=== PATIENT | male | born 1985 | race American Indian/Alaskan Native ===

== ENCOUNTER 2019-10-23 19:33 | Inpatient (IN) | payer OTHER ==
--- NOTE | 2019-10-23 19:48 | Event Note ---
ED Screening Note ED Screening Note: states that he was working out two mornings ago states after working out he felt like he had swelling in his right arm states he feels like he overworked his arm no fever no erythema pt has edema present to the LUE, increased warmth no vascular doppler person tonight PMHx HIV, on antivirals, states he is undetectable, HPV This initial assessment/diagnostic orders/clinical plan/treatment(s) is/are subject to change based on patients health status, clinical progression and re- assessment by fellow clinical providers in the ED. Further treatment and workup at subsequent clinical providers discretion. Patient/guardian urged not to elope from the ED as their condition may be serious if not clinically assessed and managed. orders: labs
[2019-10-23 20:15] LABS: Basophils % (Auto) 0.2 % (0.0-1.8); Eosinophils # (Auto) 0.1 K/mm3 (0.0-0.4); Eosinophils % (Auto) 2.3 % (0.0-4.3); Hematocrit 41.7 % (35.5-45.6); Hemoglobin 14.7 gm/dl (11.8-15.2); Lymphocytes # (Auto) 1.2 K/mm3 (1.2-5.4); Lymphocytes % (Auto) 19.6 % (13.4-35.0); Mean Corpuscular HGB Conc 35 % (32-34); Mean Corpuscular Volume 95 fl (84-94); Monocytes # (Auto) 0.1 K/mm3 (0.0-0.8); Monocytes % (Auto) 2.3 % (0.0-7.3); Platelet Count 240 K/mm3 (140-440); Red Blood Count 4.37 M/mm3 (3.65-5.03); Red Cell Distribution Width 12.8 % (13.2-15.2)
[2019-10-23 20:19] LABS: INR 1.06 (0.87-1.13)
[2019-10-23 20:20] LABS: Partial Thromboplastin Time 28.6 Sec. (24.2-36.6)
[2019-10-23 20:25] LABS: BUN/Creatinine Ratio 18; Blood Urea Nitrogen 20 mg/dL (9-20); Calcium 9.2 mg/dL (8.4-10.2); Hemolysis Index 13
--- NOTE | 2019-10-23 21:39 | Emergency Department Report ---
ED Upper Extremity Inj HPI - General Chief Complaint: Extremity Problem,Nontraumatic Stated Complaint: ARM SWELLING Time Seen by Provider: 10/23/19 19:40 Source: patient Mode of arrival: Ambulatory Limitations: No Limitations - History of Present Illness Initial Comments: Patient is a 33-year-old male with no past medical history except for HIV who presents to the ED with complaint of acute onset persistent bilateral arm pain and swelling worse on the right for the last 3 days after weightlifting and strenuous exercise in the gym. Patient states that prior to the strenuous exercise he had not been to the gym for over 5 months and decided to go to the gym 3 days ago and did heavy workout, mainly involving weightlifting. Patient states that subsequently he developed bilateral arm pain and swelling diffusely worse on the right arm. Patient states that he was evaluated initially at an urgent care clinic and was given a prescription for ibuprofen 800 mg tablets and Flexeril 10 mg tablets which she has been taking for the last 2 days. Patient states that he also has an outpatient order for bilateral upper extremity Doppler ultrasound to rule out DVT. Patient states that he is scheduled for these ultrasound of upper extremities the next day 10/25/2019. Patient however denies dizziness, chest pain, shortness of breath, abdominal pain, hematuria, dysuria, nausea, vomiting, headache, cough or wheezing, fall or traumatic injury. Complaint: Injury to:: left, right, arm, forearm -: Sudden, days(s) (4) Other Extremity Injury: Hand: Right, Left (pain and swelling), Wrist: Left, Right (pain and swelling), Elbow: Left, Right (pain and swelling), Arm: Left, Right (pain and swelling), Forearm: Left, Right (pain and swelling) Other Injuries: none Handedness: right Severity scale (0 -10): 6 Improves With: none Worsens With: none Context: injury (weight lifting and straineous work) Associated Symptoms: denies other symptoms. denies: weakness, numbness, neck pain, suspects foreign body, nausea/vomiting, heard/felt popping sensat Treatments Prior to Arrival: NSAIDS - Related Data Allergies Allergy/AdvReac Type Severity Reaction Status Date / Time No Known Allergies Allergy Unverified 10/23/19 19:48 ED Review of Systems ROS: Stated complaint: ARM SWELLING Other details as noted in HPI Constitutional: denies: chills, fever Eyes: denies: eye pain, eye discharge, vision change ENT: denies: ear pain, throat pain Respiratory: denies: cough, shortness of breath, wheezing Cardiovascular: denies: chest pain, palpitations Endocrine: no symptoms reported Gastrointestinal: denies: abdominal pain, nausea, diarrhea Genitourinary: denies: urgency, dysuria, frequency, hematuria, testicular pain, testicular mass Musculoskeletal: arthralgia (Bilateral arm and forearm pain and swelling), myalgia. denies: back pain, joint swelling Skin: denies: rash, lesions Neurological: denies: headache, weakness, paresthesias Psychiatric: denies: anxiety, depression Hematological/Lymphatic: denies: easy bleeding, easy bruising ED Past Medical Hx - Past Medical History Hx HIV: Yes Additional medical history: HPV - Surgical History Past Surgical History?: No - Social History Smoking Status: Never Smoker Substance Use Type: None ED Physical Exam - General Limitations: No Limitations General appearance: alert, in no apparent distress - Head Head exam: Present: atraumatic, normocephalic, normal inspection - Eye Eye exam: Present: normal appearance, PERRL, EOMI Pupils: Present: normal accommodation - ENT ENT exam: Present: normal exam, normal orophraynx, mucous membranes moist, TM's normal bilaterally, normal external ear exam - Neck Neck exam: Present: normal inspection, full ROM. Absent: tenderness, lymphadenopathy, thyromegaly - Respiratory Respiratory exam: Present: normal lung sounds bilaterally. Absent: respiratory distress, wheezes, rales, rhonchi, chest wall tenderness, accessory muscle use - Cardiovascular Cardiovascular Exam: Present: regular rate, normal rhythm, normal heart sounds. Absent: systolic murmur, diastolic murmur, rubs, gallop - GI/Abdominal GI/Abdominal exam: Present: soft, normal bowel sounds. Absent: distended, tenderness, guarding, rebound, hyperactive bowel sounds, hypoactive bowel sounds - Extremities Exam Extremities exam: Present: normal inspection, full ROM, tenderness (Palpable diffuse moderate bilateral arm and forearm tenderness with mild swelling), n ormal capillary refill. Absent: pedal edema, joint swelling, calf tenderness - Back Exam Back exam: Present: normal inspection, full ROM. Absent: tenderness, CVA tenderness (R), CVA tenderness (L), muscle spasm, paraspinal tenderness, vertebral tenderness - Neurological Exam Neurological exam: Present: alert, oriented X3, CN II-XII intact, normal gait, reflexes normal - Psychiatric Psychiatric exam: Present: normal affect, normal mood - Skin Skin exam: Present: warm, dry, intact, normal color. Absent: rash ED Course Vital Signs 10/23/19 10/24/19 12 19:39 00:08 03:42 Temperature 98.7 F 98.4 F 98.4 F Pulse Rate 96 H 72 70 Respiratory 18 18 18 Rate Blood Pressure 123/78 106/66 115/75 O2 Sat by Pulse 98 100 100 Oximetry ED Medical Decision Making - Lab Data Result diagrams: 10/23/19 19:54 10/23/19 19:54 - Medical Decision Making This is a 32-year-old male who presented to the ED with bilateral upper extremity pain and swelling after heavy lifting in the gym 3 days ago. Patient states that in the last 2 days the bilateral arm pain and swelling has worsened although he is currently on ibuprofen and Flexeril as needed prescribed recently by an urgent care clinic. In the ED, patient is alert and oriented 3 and is not in distress. Lab test results were reviewed and was positive for CK level 10,597.00 initially. There is a lab test results were unremarkable including urinalysis. The kidney functions and liver enzymes are normal. These findings were discussed with Dr. Webster the ED attending physician who agreed to plan of care to hydrate the patient in the ED and discussed the patient's results with the hospitalist physician environmental compliance manager Dr. Lopez. The patient's case was also discussed with Dr. Lopez the hospitalist physician environmental compliance manager who also advised that the patient be hydrated with at least 4 L of fluids and to monitor the trend of the CK level after the hydration. The patient received a total of 4 L of normal saline IV bolus. Repeat CK level after 4 L of normal saline IV fluids was 7137.0. These findings were discussed with Dr. Lopez. Hospitalist physician on-call admitted the patient to the hospital. - Differential Diagnosis Acute rhabdomyolysis; Muscle strain of arm; DVT Critical care attestation.: If time is entered above; I have spent that time in minutes in the direct care of this critically ill patient, excluding procedure time. ED Disposition Clinical Impression: Pain in both upper extremities Muscle strain of upper extremity Qualifiers: Encounter type: initial encounter Laterality: unspecified laterality Qualified Code(s): S46.919A - Strain of unspecified muscle, fascia and tendon at shoulder and upper arm level, unspecified arm, initial encounter Traumatic rhabdomyolysis Qualifiers: Encounter type: initial encounter Qualified Code(s): T79.6XXA - Traumatic ischemia of muscle, initial encounter Disposition: OP ADMIT IP TO THIS HOSP Is pt being admited?: Yes Condition: Stable Instructions: Muscle Strain (ED), Muscle Spasm (ED) Additional Instructions: Take the previously prescribed anti-inflammatory medications with food, ibuprofen as needed for pain, in addition to the muscle relaxant, drink plenty of fluids and follow-up with your primary care physician in 5-7 days for reevaluation. Referrals: MELODY HUNTER MD [Staff Physician] - 7-10 days Time of Disposition: 21:41 Print Language: GRENADIAN
[2019-10-23] MEDS ORDERED: SODIUM CHLORIDE 0.9% 1000 ML 1,000 ML IV ONE ×2 (21:57→23:04)
[2019-10-24 00:55] LABS: Bacteria,Urine 2+ /HPF (Negative); Bilirubin,Urine NEG (Negative); Blood,Urine NEG (Negative); Color,Urine Yellow (Yellow); Mucus,Urine FEW /HPF; Protein,Urine <15 mg/dL mg/dL (Negative); Sperm,Urine FEW /HPF (NP); Urobilinogen,Urine < 2.0 mg/dL (<2.0)
[2019-10-24] MEDS ORDERED: SODIUM CHLORIDE 0.9% 1000 ML 1,000 ML IV ONE ×2 (01:12)
[2019-10-24] MEDS ORDERED: ONDANSETRON 4 MG/2 ML INJ IV PRN (05:58)
[2019-10-24] MEDS ORDERED: oxyCODONE /ACETAMINOPHEN 5-325MG TAB PO PRN (05:58)
[2019-10-24] MEDS ORDERED: ACETAMINOPHEN 325 MG TAB PO PRN (05:58)
--- NOTE | 2019-10-24 06:00 | History and Physical Report ---
History of Present Illness History of present illness: 34-year-old man with a history of HIV, HPV comes emergency room with complaints of upper extremity pain started 10 days ago when he was working out, lifting weights. Pain is gotten worse, he went to urgent care on , they gave him some Flexeril and ibuprofen and sent him for ultrasound to rule out DVT. Patient said he is could not wait because of the increased pain. Patient is b eing admitted for rhabdomyolysis, rule out DVT Review Of Systems: Constitutional: no weight loss, fever, chills Ears, eyes, nose, mouth and throat: no nasal congestion, no nasal discharge, no sinus pressure, blurry vision, diplopia Neck: No neck pain or rigidity. Cardiovascular: No palpitations, chest pain Respiratory: No cough, shortness of breath Gastrointestinal: No hematochezia, abdominal pain Genitourinary : no dysuria, frequency , hematuria Musculoskeletal: no muscle ache , joint pain Integumentary: no rash, no pruritis Neurological: no parathesias, focal weakness Endocrine: no cold or heat intolerance, no polyuria or polydipsia Hematologic/Lymphatic: no easy bruising, no easy bleeding, no gland swelling Allergic/Immunologic: no urticaria, no angioedema. PAST MEDICAL HISTORY: HIV, HPV PAST SURGICAL HISTORY: NONE FAMILY HISTORY:hypertension SOCIAL HISTORY: Denies drugs, alcohol, tobacco Medications and Allergies Allergies Allergy/AdvReac Type Severity Reaction Status Date / Time No Known Allergies Allergy Verified 10/24/19 05:11 Home Medications Medication Instructions Recorded Confirmed Last Taken Type Cyclobenzaprine 1 tab PO QHS PRN 10/24/19 10/24/19 Unknown History Elviteg/Cob/Emtri/Tenof Alafen 1 each PO DAILY 10/24/19 10/24/19 Unknown History [Genvoya Tablet] Ibuprofen 1 tab PO PRN 10/24/19 10/24/19 Unknown History Furosemide [Lasix] 20 mg PO QDAY #7 tablet 10/26/19 Unknown Rx Active Meds: Active Medications Enoxaparin Sodium (Enoxaparin) 40 mg SUB-Q QDAY@1000 KLEBER Sodium Chloride (Nacl 0.9% 1000 Ml) 1,000 mls @ 150 mls/hr IV DIRECT KLEBER Exam - Physical Exam Narrative exam: General Apperance: The patient sitting in bed no acute distress HEENT: Normocephalic, atraumatic. Pupils equally round and reactive to light, extraocular movement intact, and no sclericterus or JVD or thyromegaly or nodule. Neck supple, no carotid bruit, mucous membranes dry, no exudate or erythema Heart: S1-S2, regular is rhythm Lungs: Clear to auscultation bilaterally, breathing comfortable Abdomen: Positive bowel sounds, soft, nontender, nondistended, no organomegaly Extremities: Upper extremity tender to touch, right swollen than left , no edema cyanosis clubbing Skin: no rash, nodule, warm and dry Neuro:CN 2 -12 intact, motor/sensory intact, speech is fluent - Constitutional Vitals: Temp Pulse Resp BP Pulse Ox 98.4 F 70 18 115/75 100 10/24/19 03:42 10/24/19 03:42 10/24/19 03:42 10/24/19 03:42 10/24/19 03:42 Results - Labs CBC & Chem 7: 10/25/19 06:48 10/26/19 07:22 Labs: Abnormal lab results 10/23/19 10/23/19 10/23/19 Range/Units 19:54 19:54 21:14 MCV 95 H (84-94) fl MCH 34 H (28-32) pg MCHC 35 H (32-34) % RDW 12.8 L (13.2-15.2) % Seg Neutrophils % 75.6 H (40.0-70.0) % Carbon Dioxide 21 L (22-30) mmol/L Glucose 104 H (75-100) mg/dL Total Creatine Kinase 84955 H (55-170) units/L Ur Specific [place] (1.003-1.030) 10/23/19 10/24/19 Range/Units Unknown 03:51 MCV (84-94) fl MCH (28-32) pg MCHC (32-34) % RDW (13.2-15.2) % Seg Neutrophils % (40.0-70.0) % Carbon Dioxide (22-30) mmol/L Glucose (75-100) mg/dL Total Creatine Kinase 7137 H (55-170) units/L Ur Specific [place] 1.035 H (1.003-1.030) Assessment and Plan Assessment Rhabdomyolysis Start aggressive IV fluid, monitor CK level, check ultrasound rule out DVT Percocet for pain HIV/HPV continue outpatient medications DVT prophylaxis
[2019-10-24] MEDS ORDERED: [UNRECOGNIZED DRUG - OTHER] PO SCH (10:00)
[2019-10-24] MEDS ORDERED: ENOXAPARIN 30 MG/0.3 ML INJ SUB-Q SCH (10:00)
--- NOTE | 2019-10-24 11:11 | Progress Note ---
Assessment and Plan Assessment and plan: --Rhabdomyolysis: CK levels more than 10,000 at the time of admission Increase IV hydration, add Lasix ,input output monitoring Monitor renal function, CK levels today more than 7000 Closely monitor, Pain management Check urine for drug screen --History of HIV/HPV; Continue current management, ID consult if needed --Morbid obesity; BMI 38.2 Patient advised dietary modification exercise as tolerated and weight reduction when medically stable --DVT prophylaxis; Lovenox Closely monitor and adjust management as needed Plan of care reviewed with the patient and his nurse Advanced care time 31 minutes History Interval history: Patient seen and examined this morning medical records reviewed Patient was admitted with acute rhabdomyolysis bilateral upper extremity swelling and tenderness Doppler studies pending Patient CK improved from 10,000-7000 Patient complains of generalized body pains Vital signs reviewed Hospitalist Physical - Constitutional Vitals: Temp Pulse Resp BP Pulse Ox 97.3 F L 71 16 112/62 98 10/24/19 08:19 12 08:19 10/24/19 08:19 10/24/19 08:19 10/24/19 08:19 General appearance: Present: no acute distress, well-nourished, obese (Morbidly obese) - EENT Eyes: Present: PERRL, EOM intact - Neck Neck: Present: supple, normal ROM - Respiratory Respiratory effort: normal, labored Respiratory: bilateral: diminished, negative: rales, rhonchi, wheezing - Cardiovascular Rhythm: regular Heart Sounds: Present: S1 & S2 - Extremities Extremities: no ischemia Extremity abnormal: edema (Bilateral upper extremities) - Abdominal General gastrointestinal: soft, non-tender, non-distended, normal bowel sounds - Integumentary Integumentary: Present: clear, warm - Psychiatric Psychiatric: appropriate mood/affect, cooperative - Neurologic Neurologic: CNII-XII intact, moves all extremities Results - Labs CBC & Chem 7: 10/23/19 19:54 10/23/19 19:54 Labs: Laboratory Last Values WBC 6.3 K/mm3 (4.5-11.0) 10/23/19 19:54 RBC 4.37 M/mm3 (3.65-5.03) 10/23/19 19:54 Hgb 14.7 gm/dl (11.8-15.2) 10/23/19 19:54 Hct 41.7 % (35.5-45.6) 10/23/19 19:54 MCV 95 fl (84-94) H 10/23/19 19:54 MCH 34 pg (28-32) H 10/23/19 19:54 MCHC 35 % (32-34) H 10/23/19 19:54 RDW 12.8 % (13.2-15.2) L 10/23/19 19:54 Plt Count 240 K/mm3 (140-440) 10/23/19 19:54 Lymph % (Auto) 19.6 % (13.4-35.0) 10/23/19 19:54 [place] % (Auto) 2.3 % (0.0-7.3) 10/23/19 19:54 Eos % (Auto) 2.3 % (0.0-4.3) 10/23/19 19:54 Baso % (Auto) 0.2 % (0.0-1.8) 10/23/19 19:54 Lymph # 1.2 K/mm3 (1.2-5.4) 10/23/19 19:54 [place] # 0.1 K/mm3 (0.0-0.8) 10/23/19 19:54 Eos # 0.1 K/mm3 (0.0-0.4) 10/23/19 19:54 Baso # 0.0 K/mm3 (0.0-0.1) 10/23/19 19:54 Seg Neutrophils % 75.6 % (40.0-70.0) H 10/23/19 19:54 Seg Neutrophils # 4.8 K/mm3 (1.8-7.7) 10/23/19 19:54 PT 13.7 Sec. (12.2-14.9) 10/23/19 19:54 INR 1.06 (0.87-1.13) 10/23/19 19:54 APTT 28.6 Sec. (24.2-36.6) 10/23/19 19:54 Sodium 137 mmol/L (137-145) 10/23/19 19:54 Potassium 4.3 mmol/L (3.6-5.0) 10/23/19 19:54 Chloride 99.3 mmol/L (98-107) 10/23/19 19:54 Carbon Dioxide 21 mmol/L (22-30) L 10/23/19 19:54 Anion Gap 21 mmol/L 10/23/19 19:54 BUN 20 mg/dL (9-20) 10/23/19 19:54 Creatinine 1.1 mg/dL (0.8-1.5) 10/23/19 19:54 Estimated GFR > 60 ml/min 10/23/19 19:54 BUN/Creatinine Ratio 18 % 10/23/19 19:54 Glucose 104 mg/dL (75-100) H 10/23/19 19:54 Calcium 9.2 mg/dL (8.4-10.2) 10/23/19 19:54 Total Creatine Kinase 7137 units/L (55-170) H 10/24/19 03:51 Urine Color Yellow (Yellow) 10/23/19 Unknown Urine Turbidity Clear (Clear) 10/23/19 Unknown Urine pH 5.0 (5.0-7.0) 10/23/19 Unknown Ur Specific [place] 1.035 (1.003-1.030) H 10/23/19 Unknown Urine Protein <15 mg/dl mg/dL (Negative) 10/23/19 Unknown Urine Glucose (UA) Neg mg/dL (Negative) 10/23/19 Unknown Urine Ketones Tr mg/dL (Negative) 10/23/19 Unknown Urine Blood Neg (Negative) 10/23/19 Unknown Urine Nitrite Neg (Negative) 10/23/19 Unknown Urine Bilirubin Neg (Negative) 10/23/19 Unknown Urine Urobilinogen < 2.0 mg/dL (<2.0) 10/23/19 Unknown Ur Leukocyte Esterase Neg (Negative) 10/23/19 Unknown Urine WBC (Auto) 1.0 /HPF (0.0-6.0) 10/23/19 Unknown Urine RBC (Auto) 5.0 /HPF (0.0-6.0) 10/23/19 Unknown U Epithel Cells (Auto) < 1.0 /HPF (0-13.0) 10/23/19 Unknown Urine Bacteria (Auto) 2+ /HPF (Negative) 10/23/19 Unknown Urine Mucus Few /HPF 10/23/19 Unknown Urine Sperm Few /HPF ([facility] [employer]) 10/23/19 Unknown Active Medications - Current Medications Current Medications: Generic Name Dose Route Start Last Admin Trade Name Freq PRN Reason Stop Dose Admin Acetaminophen 650 mg 10/24/19 05:58 Tylenol PO Q4H PRN Pain MILD(1-3)/Fever >100.5/HARMON Enoxaparin Sodium 40 mg 10/24/19 10:00 Enoxaparin SUB-Q QDAY@1000 REPLACED BY [facility] Sodium Chloride 1,000 mls @ 150 mls/hr 10/24/19 05:15 Nacl 0.9% 1000 Ml IV DIRECT KLEBER Miscellaneous Medication 1 each 10/24/19 10:00 Elviteg/Cob/Emtri/Tenof Alafen [Genvoya Tablet] PO DAILY REPLACED BY [facility] Ondansetron HCl 4 mg 10/24/19 05:58 Zofran IV Q8H PRN Nausea And Vomiting Oxycodone/Acetaminophen 1 tab 10/24/19 05:58 Percocet 5/325 PO Q6H PRN Pain, Moderate (4-6) Sodium Chloride 10 ml 10/24/19 10:00 Sodium Chloride Flush Syringe 10 Ml IV BID KLEBER Sodium Chloride 10 ml 10/24/19 05:58 Sodium Chloride Flush Syringe 10 Ml IV PRN PRN LINE FLUSH
[2019-10-24] MEDS: SODIUM CHLORIDE 0.9% 1000 ML 1,000 ML IV SCH ×3 (11:14→22:52)
[2019-10-24] MEDS: ENOXAPARIN 40 MG/0.4 ML INJ SUB-Q SCH (12:22)
[2019-10-24] MEDS: FUROSEMIDE 20 MG/2 ML INJ IV SCH (17:52)
[2019-10-25] MEDS: SODIUM CHLORIDE 0.9% 1000 ML 1,000 ML IV SCH ×4 (04:02→23:35)
[2019-10-25] MEDS: FUROSEMIDE 20 MG/2 ML INJ IV SCH ×2 (06:06→19:34)
[2019-10-25 06:57] LABS: Amphetamine Screen,Urine PRESUMPTIVE NEGATIVE; Benzodiazepines Screen,Urine PRESUMPTIVE NEGATIVE; Cannabinoid Screen,Urine PRESUMPTIVE NEGATIVE; Cocaine Screen,Urine PRESUMPTIVE NEGATIVE; Methadone Screen,Urine PRESUMPTIVE NEGATIVE; Opiate Screen,Urine PRESUMPTIVE NEGATIVE
[2019-10-25 07:41] LABS: Basophils % (Auto) 0.4 % (0.0-1.8); Eosinophils # (Auto) 0.2 K/mm3 (0.0-0.4); Eosinophils % (Auto) 4.5 % (0.0-4.3); Hematocrit 39.6 % (35.5-45.6); Lymphocytes # (Auto) 1.4 K/mm3 (1.2-5.4); Lymphocytes % (Auto) 25.5 % (13.4-35.0); Mean Corpuscular HGB Conc 35 % (32-34); Mean Corpuscular Volume 95 fl (84-94); Monocytes # (Auto) 0.3 K/mm3 (0.0-0.8); Monocytes % (Auto) 4.9 % (0.0-7.3); Platelet Count 224 K/mm3 (140-440); Red Blood Count 4.16 M/mm3 (3.65-5.03); Red Cell Distribution Width 12.9 % (13.2-15.2)
[2019-10-25 07:54] LABS: Creatine Kinase MB 3.9 ng/mL (0.0-4.0)
[2019-10-25 07:56] LABS: BUN/Creatinine Ratio 16; Blood Urea Nitrogen 16 mg/dL (9-20); Calcium 8.9 mg/dL (8.4-10.2); Hemolysis Index 3
[2019-10-25] MEDS: ENOXAPARIN 40 MG/0.4 ML INJ SUB-Q SCH (11:12)
--- NOTE | 2019-10-25 11:39 | Vascular Lab Report ---
DUPLEX DOPPLER UPPER EXTREMITY VENOUS, BILATERAL INDICATION: Bilateral arm swelling for 5 days duration. TECHNIQUE: Duplex doppler imaging was performed through the veins of the right and left upper extremity using ve nous compression and other maneuvers. COMPARISON: None available. FINDINGS: Right Internal Jugular vein: Negative. Right Subclavian vein: Negative. Right Axillary vein: Negative. Right Brachial vein: Negative. Right Forearm veins: Negative. Right Basilic vein (superficial): Negative. Left Internal Jugular vein: Negative. Left Subclavian vein: Negative. Left Axillary vein: Negative. Left Brachial vein: Negative. Left Forearm veins: Negative. Left Basilic vein (superficial): Negative. Additional findings: None. IMPRESSION: 1. No sonographic evidence for DVT in the right or left upper extremity. Signer Name: Lamont Beckman MD Signed: 10/25/2019 11:34 AM Workstation Name: [id number]
--- NOTE | 2019-10-25 18:34 | Progress Note ---
Assessment and Plan Assessment and plan: --Myalgia; supportive care Pain medications --Rhabdomyolysis: Preserved renal function CK levels trending down 10,000 -7000 -4000s continue IV hydration, diuresis, closely monitor If CK levels less than 2000 Patient can be discharged home --History of HIV/HPV; Continue current management, Stable --Morbid obesity; BMI 38.2 Patient advised dietary modification exercise as tolerated and weight reduction when medically stable --DVT prophylaxis; Lovenox Monitor closely and adjust management as needed Possible discharge in 1 to 2 days if stable History Interval history: Patient seen and examined medical records reviewed Patient feels slightly better diuresing well Continues to have upper extremity pain mild swelling CK levels trending down Alert awake oriented x3 Vital signs reviewed Hospitalist Physical - Constitutional Vitals: Temp Pulse Resp BP Pulse Ox 98.2 F 74 19 124/78 98 10/25/19 11:21 10/25/19 11:21 10/25/19 11:21 10/25/19 11:21 10/25/19 11:21 General appearance: Present: no acute distress, well-nourished, obese (Morbidly obese) - EENT Eyes: Present: PERRL, EOM intact - Neck Neck: Present: supple, normal ROM - Respiratory Respiratory effort: normal Respiratory: bilateral: diminished, negative: rales, rhonchi, wheezing - Cardiovascular Rhythm: regular Heart Sounds: Present: S1 & S2 - Extremities Extremities: no ischemia, No edema - Abdominal General gastrointestinal: soft, non-tender, non-distended, normal bowel sounds - Integumentary Integumentary: Present: clear, warm - Psychiatric Psychiatric: appropriate mood/affect, cooperative - Neurologic Neurologic: CNII-XII intact, moves all extremities Results - Labs CBC & Chem 7: 10/25/19 06:48 10/25/19 06:48 Labs: Laboratory Last Values WBC 5.4 K/mm3 (4.5-11.0) 10/25/19 06:48 RBC 4.16 M/mm3 (3.65-5.03) 10/25/19 06:48 Hgb 14.0 gm/dl (11.8-15.2) 10/25/19 06:48 Hct 39.6 % (35.5-45.6) 10/25/19 06:48 MCV 95 fl (84-94) H 10/25/19 06:48 MCH 34 pg (28-32) H 10/25/19 06:48 MCHC 35 % (32-34) H 10/25/19 06:48 RDW 12.9 % (13.2-15.2) L 10/25/19 06:48 Plt Count 224 K/mm3 (140-440) 10/25/19 06:48 Lymph % (Auto) 25.5 % (13.4-35.0) 10/25/19 06:48 [place] % (Auto) 4.9 % (0.0-7.3) 10/25/19 06:48 Eos % (Auto) 4.5 % (0.0-4.3) H 10/25/19 06:48 Baso % (Auto) 0.4 % (0.0-1.8) 10/25/19 06:48 Lymph # 1.4 K/mm3 (1.2-5.4) 10/25/19 06:48 [place] # 0.3 K/mm3 (0.0-0.8) 10/25/19 06:48 Eos # 0.2 K/mm3 (0.0-0.4) 10/25/19 06:48 Baso # 0.0 K/mm3 (0.0-0.1) 10/25/19 06:48 Seg Neutrophils % 64.7 % (40.0-70.0) 10/25/19 06:48 Seg Neutrophils # 3.5 K/mm3 (1.8-7.7) 10/25/19 06:48 PT 13.7 Sec. (12.2-14.9) 10/23/19 19:54 INR 1.06 (0.87-1.13) 10/23/19 19:54 APTT 28.6 Sec. (24.2-36.6) 10/23/19 19:54 Sodium 137 mmol/L (137-145) 10/25/19 06:48 Potassium 3.9 mmol/L (3.6-5.0) 10/25/19 06:48 Chloride 102.8 mmol/L (98-107) 10/25/19 06:48 Carbon Dioxide 23 mmol/L (22-30) 10/25/19 06:48 Anion Gap 15 mmol/L 10/25/19 06:48 BUN 16 mg/dL (9-20) 10/25/19 06:48 Creatinine 1.0 mg/dL (0.8-1.5) 10/25/19 06:48 Estimated GFR > 60 ml/min 10/25/19 06:48 BUN/Creatinine Ratio 16 % 10/25/19 06:48 Glucose 101 mg/dL (75-100) H 10/25/19 06:48 Calcium 8.9 mg/dL (8.4-10.2) 10/25/19 06:48 Total Creatine Kinase 4396 units/L (55-170) H 10/25/19 06:48 CK-MB (CK-2) 3.9 ng/mL (0.0-4.0) 10/25/19 06:48 CK-MB (CK-2) Rel Index 0.0 (0-4) 10/25/19 06:48 Urine Color Yellow (Yellow) 10/23/19 Unknown Urine Turbidity Clear (Clear) 10/23/19 Unknown Urine pH 5.0 (5.0-7.0) 10/23/19 Unknown Ur Specific [place] 1.035 (1.003-1.030) H 10/23/19 Unknown Urine Protein <15 mg/dl mg/dL (Negative) 10/23/19 Unknown Urine Glucose (UA) Neg mg/dL (Negative) 10/23/19 Unknown Urine Ketones Tr mg/dL (Negative) 10/23/19 Unknown Urine Blood Neg (Negative) 10/23/19 Unknown Urine Nitrite Neg (Negative) 10/23/19 Unknown Urine Bilirubin Neg (Negative) 10/23/19 Unknown Urine Urobilinogen < 2.0 mg/dL (<2.0) 10/23/19 Unknown Ur Leukocyte Esterase Neg (Negative) 10/23/19 Unknown Urine WBC (Auto) 1.0 /HPF (0.0-6.0) 10/23/19 Unknown Urine RBC (Auto) 5.0 /HPF (0.0-6.0) 10/23/19 Unknown U Epithel Cells (Auto) < 1.0 /HPF (0-13.0) 10/23/19 Unknown Urine Bacteria (Auto) 2+ /HPF (Negative) 10/23/19 Unknown Urine Mucus Few /HPF 10/23/19 Unknown Urine Sperm Few /HPF ([employer]) 10/23/19 Unknown Urine Opiates Screen Presumptive negative 10/25/19 06:00 Urine Methadone Screen Presumptive negative 10/25/19 06:00 Ur Barbiturates Screen Presumptive negative 10/25/19 06:00 Ur Phencyclidine Scrn Presumptive negative 10/25/19 06:00 Ur Amphetamines Screen Presumptive negative 10/25/19 06:00 U Benzodiazepines Scrn Presumptive negative 10/25/19 06:00 Urine Cocaine Screen Presumptive negative 10/25/19 06:00 U Marijuana (THC) Screen Presumptive negative 10/25/19 06:00 Drugs of Abuse Note Disclamer 10/25/19 06:00 Active Medications - Current Medications Current Medications: Generic Name Dose Route Start Last Admin Trade Name Freq PRN Reason Stop Dose Admin Acetaminophen 650 mg 10/24/19 05:58 Tylenol PO Q4H PRN Pain MILD(1-3)/Fever >100.5/HARMON Enoxaparin Sodium 40 mg 10/24/19 10:00 10/25/19 11:12 Enoxaparin SUB-Q Not Given QDAY@1000 KLEBER Furosemide 20 mg 10/24/19 18:00 10/25/19 06:06 Lasix IV 20 mg 0600,1800 KLEBER Administration Sodium Chloride 1,000 mls @ 200 mls/hr 10/24/19 05:15 10/25/19 17:02 Nacl 0.9% 1000 Ml IV 200 mls/hr DIRECT KLEBER Administration Miscellaneous Medication 1 each 10/24/19 10:00 Elviteg/Cob/Emtri/Tenof Alafen [Genvoya Tablet] PO DAILY KLEBER Ondansetron HCl 4 mg 10/24/19 05:58 Zofran IV Q8H PRN Nausea And Vomiting Oxycodone/Acetaminophen 1 tab 10/24/19 05:58 Percocet 5/325 PO Q6H PRN Pain, Moderate (4-6) Sodium Chloride 10 ml 10/24/19 10:00 10/25/19 11:11 Sodium Chloride Flush Syringe 10 Ml IV 10 ml BID KLEBER Administration Sodium Chloride 10 ml 10/24/19 05:58 Sodium Chloride Flush Syringe 10 Ml IV PRN PRN LINE FLUSH Nutrition/Malnutrition Assess - Dietary Evaluation Nutrition/Malnutrition Findings: Nutrition Notes Start: 10/25/19 14:06 Freq: Status: Active Protocol: Document 10/25/19 14:06 LM (Rec: 10/25/19 14:08 LM [id number]) Nutrition Notes Need for Assessment generated from: windchill administrator Initial or Follow up Brief Note Subjective/Other Information RN screen for skin risk. Cecil score 22. 100% intakes in chart. Nutrition Intervention Revisit per MD consult or patient Sign Off request:
[2019-10-26] MEDS: SODIUM CHLORIDE 0.9% 1000 ML 1,000 ML IV SCH ×2 (04:14→10:42)
[2019-10-26] MEDS: FUROSEMIDE 20 MG/2 ML INJ IV SCH (05:49)
[2019-10-26 08:10] LABS: BUN/Creatinine Ratio 14; Blood Urea Nitrogen 14 mg/dL (9-20); Calcium 8.7 mg/dL (8.4-10.2); Hemolysis Index 6
[2019-10-26] MEDS: ENOXAPARIN 40 MG/0.4 ML INJ SUB-Q SCH (10:43)
--- NOTE | 2019-10-26 15:37 | Discharge Summary ---
Providers - Providers Date of Admission: 10/24/19 17:00 Date of discharge: 10/26/19 Attending physician: SHMUEL CARBONE Primary care physician: CHIEF SAFETY OFFICER Hospitalization Reason for admission: Myalgia/Rhabdomyolysis Condition: Stable Pertinent studies: Lower extremity venous doppler Hospital course: 34-year-old man with a history of HIV, HPV comes emergency room with complaints of upper extremity pain started 10 days ago when he was working out, lifting weights. Pain is gotten worse, he went to urgent care on , they gave him some Flexeril and ibuprofen and sent him for ultrasound to rule out DVT. Patient said he is could not wait because of the increased pain. Patient is being admitted for rhabdomyolysis. Received vigorous IV hydration.diuresis and close monitoring of renal function and CK levels. Myalgia,rhabdomyolysis,CK levels were closely monitored and patient's symptoms significantly improved. Today patient is comfortable,no new complaints,vital signs stable Physical exam is unremarkable. Stable at discharge. Discharge Diagnosis: --Myalgia; supportive care Pain medications --Rhabdomyolysis: Preserved renal function CK levels trending down 10,000 -7000 -4000s continue IV hydration, diuresis, closely monitor If CK levels less than 2000 Patient can be discharged home --History of HIV/HPV; Continue current management, Stable --Morbid obesity; BMI 38.2 Patient advised dietary modification exercise as tolerated and weight reduction when medically stable --DVT prophylaxis; Lovenox Stable at discharge Disposition: DC-01 TO HOME OR SELFCARE Time spent for discharge: 32 min Core Measure Documentation - Palliative Care Palliative Care/ Comfort Measures: Not Applicable - Core Measures Any of the following diagnoses?: none Exam - Constitutional Vitals: Temp Pulse Resp BP Pulse Ox 97.4 F L 66 18 136/84 98 10/26/19 05:39 10/26/19 05:39 10/26/19 05:39 10/26/19 05:39 10/26/19 05:39 General appearance: Present: no acute distress, well-nourished - EENT Eyes: Present: PERRL, EOM intact - Neck Neck: Present: supple, normal ROM - Respiratory Respiratory effort: normal Respiratory: bilateral: diminished, negative: rales, rhonchi, wheezing - Cardiovascular Rhythm: regular Heart Sounds: Present: S1 & S2 - Extremities Extremities: no ischemia, No edema - Abdominal General gastrointestinal: Present: soft, non-tender, non-distended, normal bowel sounds - Integumentary Integumentary: Present: clear, warm - Musculoskeletal Musculoskeletal: strength equal bilaterally - Psychiatric Psychiatric: appropriate mood/affect, cooperative - Neurologic Neurologic: CNII-XII intact, moves all extremities Plan Activity: no restrictions Diet: regular, other (Take plenty oral fluids/water as discussed) Additional Instructions: Check CPK, BMP blood tests in 2 days at PMDs office/ER/or health department. And check with primary care physician. Do not do strenuous exercises Follow up with: MELODY HUNTER MD [Staff Physician] - 7-10 days Prescriptions: Furosemide [Lasix] 20 mg PO QDAY #7 tablet
[2019-10-26 18:24] VITALS: BP 128/81
== END 2019-10-26 18:19 | disposition home or self-care (01) | DRG 566 ==
LOC: ED 19:33 → 3A 10-24 05:09 → OBSVTOIN 10-24 17:00
PROVIDERS: ADMIT Internal Medicine; ATTEND Internal Medicine
DX: T79.6XXA Traumatic ischemia of muscle, initial encounter (principal); E66.01 Morbid (severe) obesity due to excess calories; Z21 Asymptomatic human immunodeficiency virus [HIV] infection status; X58.XXXA Exposure to other specified factors, initial encounter; Z82.49 Family history of ischemic heart disease and other diseases of the circulatory system; Z68.38 Body mass index [BMI] 38.0-38.9, adult
CPT/HCPCS: 36415; 80048; 80307; 81001; 82550; 82553; 85025; 85610; 85730; 93970; 96360; 96361; G0378; J1650; J1940; J7030

== ENCOUNTER 2021-01-10 23:40 | Emergency (ER) | payer OTHER ==
--- NOTE | 2021-01-11 00:40 | Event Note ---
ED Screening Note Date of service: 01/11/21 Time: 00:39 ED Screening Note: Patient presents with complaints of right sided neck vein distention and pain x1 week Tender inflamed right external jugular vein noted on exam This initial assessment/diagnostic orders/clinical plan/treatment(s) is/are subject to change based on patients health status, clinical progression and re- assessment by fellow clinical providers in the ED. Further treatment and workup at subsequent clinical providers discretion. Patient/guardian urged not to elope from the ED as their condition may be serious if not clinically assessed and managed. Initial orders include: Labs Ultrasound
[2021-01-11 01:47] LABS: Albumin 4.8 g/dL (3.9-5); Calcium 9.7 mg/dL (8.4-10.2)
[2021-01-11 01:59] LABS: Basophils % (Auto) 0.4 % (0.0-1.8); Eosinophils # (Auto) 0.1 K/mm3 (0.0-0.4); Eosinophils % (Auto) 1.2 % (0.0-4.3); Hematocrit 41.7 % (35.5-45.6); Hemoglobin 14.6 gm/dl (11.8-15.2); Lymphocytes # (Auto) 1.7 K/mm3 (1.2-5.4); Lymphocytes % (Auto) 23.7 % (13.4-35.0); Mean Corpuscular HGB Conc 35 % (32-34); Mean Corpuscular Volume 96 fl (84-94); Monocytes # (Auto) 0.5 K/mm3 (0.0-0.8); Monocytes % (Auto) 7.3 % (0.0-7.3); Platelet Count 227 K/mm3 (140-440); Red Blood Count 4.35 M/mm3 (3.65-5.03); Red Cell Distribution Width 12.7 % (13.2-15.2)
[2021-01-11 02:16] LABS: Erythrocyte Sedimentation Rate 6 mm/Hr (0-20)
--- NOTE | 2021-01-11 02:49 | Emergency Department Report ---
ED Neck Pain/Injury HPI - General Chief Complaint: Neck Pain/Injury Stated Complaint: RT SIDE NECK PAIN/SWOLLEN Time Seen by Provider: 01/11/21 00:18 Mode of arrival: Ambulatory Limitations: No Limitations - History of Present Illness Initial Comments: Patient is a 35-year-old male that presents emergency room with complaints of right-sided neck pain. Patient states that the blood vessel is swollen on the right side of his neck. Patient states that he spoke with his primary care and he told him to come to the emergency room to be evaluated for a possible blood clot. Patient states the pain is a 3 out of 10. Patient patient states that the pain is worse with palpation and movement. Patient states the pain is better with rest. Patient denies fever and chills. Patient denies sore throat. Patient denies chest pain. Patient denies shortness of breath. Patient denies any swelling to the face. Patient denies recent travel. Patient denies recent international travel. Patient denies exposure to the novel coronavirus. Patient denies sick contacts. Patient denies fever and chills. Patient denies cough. Patient denies diarrhea. Patient denies coming in contact with anybody with symptoms of the novel coronavirus. MD Complaint: neck pain -: Sudden Place: home Severity scale (0 -10): 3 Quality: dull, aching Consistency: constant Associated Symptoms: none Treatments Prior to Arrival: none - Related Data Home Medications Medication Instructions Recorded Confirmed Last Taken Cyclobenzaprine 1 tab PO QHS PRN 10/24/19 10/24/19 Unknown Elviteg/Cob/Emtri/Tenof Alafen 1 each PO DAILY 10/24/19 10/24/19 Unknown [Genvoya Tablet] Ibuprofen 1 tab PO PRN 10/24/19 10/24/19 Unknown Previous Rx's Medication Instructions Recorded Last Taken Type Furosemide [Lasix] 20 mg PO QDAY #7 tablet 10/26/19 Unknown Rx Ibuprofen [Motrin 800 MG tab] 800 mg PO Q8HR PRN #30 tablet 01/11/21 Unknown Rx Allergies Allergy/AdvReac Type Severity Reaction Status Date / Time No Known Allergies Allergy Verified 10/24/19 05:11 ED Review of Systems ROS: Stated complaint: RT SIDE NECK PAIN/SWOLLEN Other details as noted in HPI Constitutional: denies: chills, fever Eyes: denies: eye pain, eye discharge, vision change ENT: denies: ear pain, throat pain Respiratory: denies: cough, shortness of breath, wheezing Cardiovascular: denies: chest pain, palpitations Endocrine: no symptoms reported Gastrointestinal: denies: abdominal pain, nausea, diarrhea Genitourinary: denies: urgency, dysuria Musculoskeletal: denies: back pain, joint swelling, arthralgia Skin: denies: rash, lesions Neurological: denies: headache, weakness, paresthesias Psychiatric: denies: anxiety, depression Hematological/Lymphatic: denies: easy bleeding, easy bruising ED Past Medical Hx - Past Medical History Previous Medical History?: Yes Hx Hypertension: Yes (MOM) Hx Heart Attack/AMI: No Hx Congestive Heart Failure: No Hx Diabetes: No Hx Deep Vein Thrombosis: No Hx Asthma: No Hx COPD: No Hx HIV: Yes Additional medical history: HPV - Surgical History Past Surgical History?: Yes Hx Coronary Stent: No Hx Pacemaker: No Hx Internal Defibrillator: No Additional Surgical History: HPV - Family History Family history: no significant - Social History Smoking Status: Never Smoker Substance Use Type: None - Medications Home Medications: Home Medications Medication Instructions Recorded Confirmed Last Taken Type Cyclobenzaprine 1 tab PO QHS PRN 10/24/19 10/24/19 Unknown History Elviteg/Cob/Emtri/Tenof Alafen 1 each PO DAILY 10/24/19 10/24/19 Unknown History [Genvoya Tablet] Ibuprofen 1 tab PO PRN 10/24/19 10/24/19 Unknown History Furosemide [Lasix] 20 mg PO QDAY #7 tablet 10/26/19 Unknown Rx Ibuprofen [Motrin 800 MG tab] 800 mg PO Q8HR PRN #30 tablet 01/11/21 Unknown Rx ED Physical Exam - General Limitations: No Limitations General appearance: alert, in no apparent distress - Head Head exam: Present: atraumatic, normocephalic - Eye Eye exam: Present: normal appearance - ENT ENT exam: Present: mucous membranes moist - Neck Neck exam: Present: normal inspection, tenderness (Over the right EJ. Patient has tenderness directly over the right EJ. Palpation of the right EJ reproduces symptoms.), full ROM. Absent: meningismus, lymphadenopathy, thyromegaly - Respiratory Respiratory exam: Present: normal lung sounds bilaterally. Absent: respiratory distress - Cardiovascular Cardiovascular Exam: Present: regular rate, normal rhythm. Absent: systolic murmur, diastolic murmur, rubs, gallop - GI/Abdominal GI/Abdominal exam: Present: soft, normal bowel sounds - Rectal Rectal exam: Present: deferred - Extremities Exam Extremities exam: Present: normal inspection - Back Exam Back exam: Present: normal inspection - Neurological Exam Neurological exam: Present: alert, oriented X3 - Psychiatric Psychiatric exam: Present: normal affect, normal mood - Skin Skin exam: Present: warm, dry, intact, normal color. Absent: rash ED Course Vital Signs 01/10/21 01/11/21 01/11/21 23:45 06:10 07:22 Temperature 98.8 F 97.7 F Pulse Rate 104 H 77 68 Respiratory 18 18 16 Rate Blood Pressure 135/73 Blood Pressure 126/81 120/85 [Left] O2 Sat by Pulse 98 98 98 Oximetry - Reevaluation(s) Reevaluation #1: I discussed all results and clinical findings with patient. I discussed plan of care with patient. Patient agrees with plan of care. Patient is stable for discharge. Patient will be discharged home. Patient given discharge instructions. Patient voiced understanding of discharge instructions. 01/11/21 06:35 ED Medical Decision Making - Lab Data Result diagrams: 01/11/21 00:57 01/11/21 00:57 - Radiology Data Radiology results: report reviewed US soft tissue head and neck INDICATION / CLINICAL INFORMATION: neck pain and swelling over EJ. TECHNIQUE: Cassidy scale and Doppler sonographic evaluation of neck was performed dedicated to the region of clinical concern. Longitudinal and transverse imaging was performed. COMPARISON: None available. FINDINGS: No evidence of significant solid or cystic mass in the area of concern. IMPRESSION: No sonographic evidence of mass in the area of concern. - Medical Decision Making Patient is a 35-year-old male that presents emergency room with complaints of right EJ. Patient had labs done which were essentially unremarkable. Patient sed rate was negative. Patient had an ultrasound of the area of concern on the right neck and the ultrasound was negative. Patient had a CTA which also was negative and did not show any acute findings or problems within the EJ. Patient clinical findings with thrombophlebitis. Patient given a course of ibuprofen. Patient instructed to take 3 days of ibuprofen every 8 hours and follow-up with his primary care. Patient will need repeat chemistry to ensure that his creatinine is improving. Patient had labs done which showed a mild elevation of creatinine. Patient instructed to increase water a low-salt diet. Patient stable for discharge. Patient discharged home. - Differential Diagnosis Thrombophlebitis, trauma to the neck. Lymphadenopathy, Critical care attestation.: If time is entered above; I have spent that time in minutes in the direct care of this critically ill patient, excluding procedure time. ED Disposition Clinical Impression: Neck pain, Neck mass Superficial thrombophlebitis Qualifiers: Superficial thrombophlebitis-Involved body area: unspecified site Qualified Code(s): I80.9 - Phlebitis and thrombophlebitis of unspecified site Disposition: TO HOME OR SELFCARE Is pt being admited?: No Does the pt Need Aspirin: No Condition: Stable Instructions: Thrombophlebitis, Phlebitis, [id number] Additional Instructions: Patient to follow-up with primary care in 2 to 3 days. Patient to follow-up with vascular surgeon in 2 to 3 days. Patient to rest. Patient to increase water. Patient to take Tylenol as needed for pain. Patient to apply warm compress to the site 4 times a day. Patient to take meds as directed. Patient to return to the ER if condition worsens, changes or new symptoms arise. Prescriptions: Ibuprofen [Motrin 800 MG tab] 800 mg PO Q8HR PRN #30 tablet PRN Reason: pain Referrals: PRIMARY MD ROMAINE [Primary Care Provider] - 2-3 Days MARY JANE CHAPARRO MD [Staff Physician] - 2-3 Days Time of Disposition: 07:00
--- NOTE | 2021-01-11 04:55 | Ultrasound Report ---
US soft tissue head and neck INDICATION / CLINICAL INFORMATION: neck pain and swelling over EJ. TECHNIQUE: Cassidy scale and Doppler sonographic evaluation of neck was performed dedicated to the regio n of clinical concern. Longitudinal and transverse imaging was performed. COMPARISON: None available. FINDINGS: No evidence of significant solid or cystic mass in the area of concern. IMPRESSION: No sonographic evidence of mass in the area of concern. Signer Name: Chi Garrido MD Signed: 01/11/2021 4:51 AM Workstation Name: [id number]
--- NOTE | 2021-01-11 06:55 | Cat Scan Report ---
CT angio neck INDICATION / CLINICAL INFORMATION: 35 years Male; Neck swelling. TTP over EJ. TECHNIQUE: Thin cut axial images obtained through the head during IV bolus contrast administration. S agittal, coronal, and 3 plane MIP reconstructions performed by the technologist. NASCET type criteria used evaluate stenoses. All CT scans at this location are performed using CT dose reduction for ALAR A by means of automated exposure control. COMPARISON: None available. FINDINGS: CAROTID ARTERIES: There is minimal plaque along the posterior proximal left ICA with small focus of c alcification. However, there is no significant stenosis involving cervical carotid arteries bilateral ly. VERTEBRAL ARTERIES: The proximal right vertebral artery is obscured by the dense contrast within the adjacent venous structures. Otherwise, there is no significant focal stenosis involving the visualize d vertebral arteries. ARCH: There is no significant stenosis of the arch vessels. ADDITIONAL FINDINGS: There is no significant stenosis involving visualized intracranial vessels. Ther e is a well-circumscribed lesion projected along the inferior right lobe of thyroid gland measuring 2 .9 cm AP by 2.6 cm transverse by 3.4 cm sagittally and greatest dimensions which may reflect exophyti c thyroid lesion at. This finding extends inferiorly to the level of the clavicles and abuts the righ t trachea without significant stenosis. The CTA of the neck was performed during arterial phase and is not optimally timed for evaluation of the venous structures. However, no significant inflammatory changes are seen involving superficial so ft tissues of the neck. The right submandibular gland appears surgically absent. There are overhangin g margins of the thyroid gland along the superior aspect of this lesion that is possible the lesion i s separate without associated mass effect. The inferior extent is obscured by the degree of beam hard ening from the overlying clavicles. IMPRESSION: There is no CTA evidence of significant stenosis involving carotid or vertebral arteries. The study was performed during the arterial phase as part of the CTA protocol. However, no significan t inflammatory changes seen involving the superficial soft tissues of the neck and correlation would be needed regarding emergent presentation of unspecified "neck swelling, TTP over EJ". There is a 2.9 x 2.6 x 3.4 cm well-circumscribed lesion extending inferior from the right lobe of the thyroid gland as detailed above which is nonspecific and follow-up evaluation with thyroid ultrasoun d would be recommended. Signer Name: Mahesh Young MD Signed: 01/11/2021 6:51 AM Workstation Name: [id number]
[2021-01-11 07:22] VITALS: BP 120/85
== END 2021-01-11 07:25 | disposition home or self-care (01) ==
LOC: ED 23:40
DX: R22.1 Localized swelling, mass and lump, neck (principal); I80.8 Phlebitis and thrombophlebitis of other sites; I10 Essential (primary) hypertension; Z21 Asymptomatic human immunodeficiency virus [HIV] infection status; Z79.899 Other long term (current) drug therapy
CPT/HCPCS: 36415; 70498; 76536; 80053; 85025; 85652; 99284; Q9967